=== PATIENT | male | born 1955 | race Caucasian/White ===

== ENCOUNTER 2017-01-08 09:29 | Observation (INO) | payer MEDICAID ==
[~2017-01-08] VITALS: Ht 177.8 cm; Wt 72.6 kg
[2017-01-08] MEDS ORDERED: CALC300T4 PO (09:59)
[2017-01-08] MEDS ORDERED: LACTATED RINGERS 1,000 ML IV SCH (10:10)
[2017-01-08] MEDS ORDERED: FENTANYL CITRATE/PF 50MCG/ML 2ML VIAL ONE (11:20)
[2017-01-08] MEDS ORDERED: MIDAZOLAM HCL 2 MG/2 ML VIAL ONE (11:20)
[2017-01-08] MEDS ORDERED: CEFAZOLIN SODIUM 1000MG/VIAL ONE (11:58)
[2017-01-08] MEDS ORDERED: PROPOFOL 200MG/20ML VIAL IV ONE (11:58)
[2017-01-08] MEDS ORDERED: FENTANYL CITRATE/PF 50MCG/ML 2ML VIAL IV PRN (12:15)
[2017-01-08] MEDS ORDERED: ONDANSETRON HCL 4MG/2ML VIAL IV PRN (12:15)
[2017-01-08] MEDS ORDERED: MEPERIDINE HCL/PF 25MG/ML CPJ IV PRN (12:30)
[2017-01-08] MEDS ORDERED: MAGNESIUM HYDROXIDE 400MG/5ML 30ML UDC PO PRN (12:30)
[2017-01-08] MEDS ORDERED: LORAZEPAM 1MG TABLET PO PRN (12:30)
[2017-01-08] MEDS: HYDROMORPHONE HCL/PF 2MG/ML CPJ IV PRN ×2 (13:10→13:20)
[2017-01-08 13:58] LABS: MEAN CORPUSCULAR HEMOGLOBIN 29.5 pg (28.0-32.0); MEAN CORPUSCULAR VOLUME 86.9 fL (80.0-94.0); PLATELET 222 x1000/uL (130-400); RED BLOOD CELL COUNT 5.06 mill/uL (4.7-6.1)
[2017-01-08 14:01] LABS: CHLORIDE 106 mEq/L (98-107)
[2017-01-08 14:04] LABS: CARBON DIOXIDE 31 mEq/L (21-32)
[2017-01-08 16:30] VITALS: BP 123/72
[2017-01-08 17:20] VITALS: BP 123/72
[2017-01-08] MEDS: HYDROCODONE/ACETAMINOPHEN 10/325MG TABLET PO PRN (17:24)
[2017-01-08 20:00] VITALS: BP 149/77
[2017-01-09] VITALS: BP 117/69
[2017-01-09] MEDS: HYDROCODONE/ACETAMINOPHEN 10/325MG TABLET PO PRN (01:17)
[2017-01-09 04:00] VITALS: BP 114/87
[2017-01-09 09:33] VITALS: BP 114/87
[2017-01-09] MEDS ORDERED: SODIUM CHLORIDE 0.9% 10ML VIAL ONE (14:11)
[2017-01-09] MEDS ORDERED: IOHEXOL-300 100 ML BOTTLE ONE (14:11)
[2017-01-09 15:33] VITALS: BP 111/77
== END 2017-01-09 16:15 | disposition home or self-care (01) ==
LOC: OR 09:29 → INTOOBSV 09:30 → 6EST 09:30
PROVIDERS: ADMIT Urology; ATTEND Urology
DX: C67.9 Malignant neoplasm of bladder, unspecified (principal)
CPT/HCPCS: 36415; 52235; 74177; 80048; 85027; 88305; A4216; G0378; J0690; J1170; J2175; J2405; J3010; J7120; Q9967; J2250; J2704

== ENCOUNTER → 2017-04-23 | Day surgery (SDC) | payer MEDICAID ==
[~2017-04-23] VITALS: Ht 177.8 cm; Wt 73.5 kg
[~2017-04-23] MED LIST: CALC300T4 PO; LACTATED RINGERS 1,000 ML IV SCH; MIDAZOLAM HCL 5 MG/ML VIAL ONE; SUCCINYLCHOLINE CHLORIDE 200MG/10ML VIAL IV ONE
== END | disposition home or self-care (01) ==
LOC: OR 05:39
PROVIDERS: ATTEND Urology
DX: C67.9 Malignant neoplasm of bladder, unspecified (principal); K58.8 Other irritable bowel syndrome; Z87.891 Personal history of nicotine dependence
CPT/HCPCS: 52234; 88305; J0330; J2250; J7120